=== PATIENT | female | born 1980 | race Caucasian/White ===

== ENCOUNTER → 2017-04-30 | Outpatient (CLI) | payer BC | LOC: MC.RAD 10:58 | DX: Z12.31 Encounter for screening mammogram for malignant neoplasm of breast (principal); Z80.3 Family history of malignant neoplasm of breast ==

== ENCOUNTER 2017-10-04 08:34 | Day surgery (SDC) | payer BC ==
[~2017-10-04] VITALS: Ht 188 cm; Wt 109.0 kg
[2017-10-04] VITALS (10 sets, daily range): BP systolic 112–123; BP diastolic 58–76; PULSE 68–80; TEMP 97.8–98.5
[2017-10-04] MEDS ORDERED: MONONESSA 35 MC1 TA1 PO (09:00)
[2017-10-04] MEDS ORDERED: PROBIOTIC FORMU1 CAP PO (09:00)
[2017-10-04] MEDS ORDERED: MOTRIN 800800 MG/TAB PO (10:29)
[2017-10-04] MEDS ORDERED: PERCOCET 325 MG1 TA2 PO (10:29)
== END 2017-10-04 21:10 | disposition home or self-care (01) ==
LOC: SDCO 08:34 → OB 15:18 → SDCO 21:10
DX: N88.8 Other specified noninflammatory disorders of cervix uteri (principal); N80.0 Endometriosis of uterus; N73.6 Female pelvic peritoneal adhesions (postinfective)
CPT/HCPCS: OP; A4314; J0690; J1100; J1885; J2250; J2405; J2550; J2704; J2710; J3010; J7120; Q9968

== ENCOUNTER → 2021-01-30 | Outpatient (CLI) | payer BC ==
[~2021-01-30] MED LIST: MONONESSA 35 MC1 TA1 PO; MOTRIN 800800 MG/TAB PO; PERCOCET 325 MG1 TA2 PO; PROBIOTIC FORMU1 CAP PO
== END ==
LOC: MC.RAD 10:30
DX: Z12.31 Encounter for screening mammogram for malignant neoplasm of breast (principal)

== ENCOUNTER → 2022-02-19 | Outpatient (CLI) | payer BC | LOC: MC.RAD 14:15 | DX: Z12.31 Encounter for screening mammogram for malignant neoplasm of breast (principal) ==

== ENCOUNTER → 2022-05-01 | Outpatient (CLI) | payer BC | LOC: MC.RAD 13:56 | DX: N63.25 Unspecified lump in the left breast, overlapping quadrants (principal) ==

== ENCOUNTER → 2024-05-14 | Outpatient (CLI) | payer BC | LOC: MC.RAD 07:49 | DX: Z12.31 Encounter for screening mammogram for malignant neoplasm of breast (principal) ==